=== PATIENT | female | born 1975 | race Caucasian/White ===

== ENCOUNTER → 2019-08-27 | Outpatient (CLI) | payer BC | LOC: RAD 13:08 | DX: Z12.31 Encounter for screening mammogram for malignant neoplasm of breast (principal) ==

== ENCOUNTER → 2019-09-23 | Outpatient (CLI) | payer BC | LOC: ULTRA 09:56 | DX: N60.01 Solitary cyst of right breast (principal) ==

== ENCOUNTER → 2020-10-21 | Outpatient (CLI) | payer BC, OTHER | LOC: BC 11:38 | PROVIDERS: ATTEND Family Medicine | DX: Z12.31 Encounter for screening mammogram for malignant neoplasm of breast (principal) ==